=== PATIENT | male | born 1980 | race Asian ===

== ENCOUNTER 2017-01-14 23:32 | Emergency (ER) | payer OTHER ==
[2017-01-15 01:26] LABS: BASOPHIL % 2.7 % (0-2); CALCIUM 8.9 mg/dL (8.5-10.1); CARBON DIOXIDE 26.9 mmol/L (21-32); CREATININE SERUM 1.5 mg/dL (0.7-1.3); PLATELET COUNT 225 x10^3mcL (130-400); POTASSIUM SERUM 3.6 mmol/L (3.5-5.1); RED CELL DISTRIBUTION WIDTH 13.9 % (11.5-14.5)
[2017-01-15 01:38] LABS: ALBUMIN 3.7 g/dL (3.4-5.0); BILIRUBIN TOTAL 1.3 mg/dL (0.20-1.00); MAGNESIUM 2.2 mg/dL (1.8-2.4); T4(THYROXINE) 8.1 ug/dL (4.7-13.3); TOTAL PROTEIN, SERUM 6.6 g/dL (6.4-8.2)
[2017-01-15 02:06] LABS: microscopic required? YES; urine erythrocyte TRACE (NEGATIVE)
[2017-01-15 02:13] LABS: AMPHETAMINE QUAL UR NONE DETECTED (NEG <=1000)
[2017-01-15 03:00] VITALS: BP 164/107
== END 2017-01-15 03:00 | disposition home or self-care (01) ==
LOC: ED 23:32
PROVIDERS: Emergency Medicine
DX: I10 Essential (primary) hypertension (principal); M54.9 Dorsalgia, unspecified; F17.210 Nicotine dependence, cigarettes, uncomplicated
CPT/HCPCS: 82962; 83880; 99406; J3490; Q0092

== ENCOUNTER 2019-01-15 03:03 | Emergency (ER) | payer SELFPAY ==
[~2019-01-15] VITALS: Ht 177.8 cm; Wt 83.0 kg
[2019-01-15 03:09] VITALS: Ht 177.8 cm; Wt 83.0 kg
[2019-01-15 04:24] LABS: CALCIUM 9.6 mg/dL (8.5-10.1); CREATININE SERUM 1.6 mg/dL (0.7-1.3)
[2019-01-15 04:29] LABS: ALBUMIN 3.9 g/dL (3.4-5.0); BILIRUBIN TOTAL 1.3 mg/dL (0.20-1.00); TOTAL PROTEIN, SERUM 7.3 g/dL (6.4-8.2)
[2019-01-15 04:36] LABS: BASOPHIL % 0.4 % (0-2); PLATELET COUNT 202 x10^3mcL (130-400); RED CELL DISTRIBUTION WIDTH 15.3 % (11.5-14.5)
[2019-01-15 08:05] VITALS: BP 145/98
== END 2019-01-15 08:05 | disposition home or self-care (01) ==
LOC: ED 03:03
PROVIDERS: Emergency Medicine
DX: R07.89 Other chest pain (principal); R06.02 Shortness of breath; I12.9 Hypertensive chronic kidney disease with stage 1 through stage 4 chronic kidney disease, or unspecified chronic kidney disease; N18.9 Chronic kidney disease, unspecified
CPT/HCPCS: 36415; 83880; 85378; Q0092

== ENCOUNTER 2019-04-28 05:37 | Emergency (ER) | payer SELFPAY ==
[~2019-04-28] VITALS: Ht 177.8 cm; Wt 84.8 kg
[2019-04-28 05:44] VITALS: BP 167/120
[2019-04-28 06:25] LABS: microscopic required? NO
[2019-04-28 06:40] LABS: BASOPHIL % 0.4 % (0-2); PLATELET COUNT 210 x10^3mcL (130-400)
[2019-04-28 06:48] LABS: urine erythrocyte NEGATIVE (NEGATIVE)
[2019-04-28 06:51] LABS: CALCIUM 9.5 mg/dL (8.5-10.1); CARBON DIOXIDE 30.7 mmol/L (21-32); CREATININE SERUM 1.5 mg/dL (0.7-1.3); POTASSIUM SERUM 3.7 mmol/L (3.5-5.1)
[2019-04-28 06:52] LABS: RED CELL DISTRIBUTION WIDTH 14.6 % (11.5-14.5)
[2019-04-28 06:56] LABS: ALBUMIN 4.3 g/dL (3.4-5.0); BILIRUBIN TOTAL 1.9 mg/dL (0.20-1.00); TOTAL PROTEIN, SERUM 7.8 g/dL (6.4-8.2)
== END 2019-04-28 08:00 | disposition home or self-care (01) ==
LOC: ED 05:37
PROVIDERS: Emergency Medicine
DX: R10.13 Epigastric pain (principal); E27.9 Disorder of adrenal gland, unspecified; I10 Essential (primary) hypertension
CPT/HCPCS: 36415

== ENCOUNTER 2019-10-30 09:55 | Emergency (ER) | payer BC ==
[~2019-10-30] VITALS: Ht 177.8 cm; Wt 86.2 kg
[2019-10-30 09:58] VITALS: Ht 177.8 cm; Wt 86.2 kg
[2019-10-30 11:20] LABS: CALCIUM 9.7 mg/dL (8.5-10.1); CARBON DIOXIDE 31.7 mmol/L (21-32); CREATININE SERUM 1.6 mg/dL (0.7-1.3); POTASSIUM SERUM 4.5 mmol/L (3.5-5.1)
[2019-10-30 11:24] LABS: ALBUMIN 4.2 g/dL (3.4-5.0); BILIRUBIN TOTAL 1.65 mg/dL (0.20-1.00); CHOLESTEROL/HDL RATIO 4.6; TOTAL PROTEIN, SERUM 7.4 g/dL (6.4-8.2)
[2019-10-30 11:33] LABS: BASOPHIL % 0.3 % (0-2); PLATELET COUNT 218 x10^3mcL (130-400); RED CELL DISTRIBUTION WIDTH 14.9 % (11.5-14.5)
[2019-10-30 11:54] LABS: AMPHETAMINE QUAL UR NONE DETECTED (See below)
[2019-10-30 15:00] VITALS: BP 144/99
== END 2019-10-30 15:00 | disposition home or self-care (01) ==
LOC: ED 09:55
PROVIDERS: Emergency Medicine
DX: I10 Essential (primary) hypertension (principal); R07.89 Other chest pain
CPT/HCPCS: J3490; Q0092